=== PATIENT | male | born 1990 | race Caucasian/White ===

== ENCOUNTER 2022-07-08 04:53 | Emergency (ER) | payer BC ==
[~2022-07-08] VITALS: Ht 182.9 cm; Wt 127.0 kg
[~2022-07-08 04:53] MED LIST: Percocet 5-3251 EACH PO; Zofran8 MG PO
== END 2022-07-08 05:58 | disposition home or self-care (01) ==
LOC: ER 04:53
DX: R04.0 Epistaxis (principal)
CPT/HCPCS: A9270

== ENCOUNTER 2024-08-30 18:48 | Emergency (ER) | payer BC ==
[~2024-08-30] VITALS: Ht 182.9 cm; Wt 127.0 kg
[2024-08-30 18:52] VITALS: BP 148/99
[2024-08-30] MEDS ORDERED: Ibuprofen 400 MG Tab PO ONE (18:55)
== END 2024-08-30 20:09 | disposition home or self-care (01) ==
LOC: ER 18:48
DX: S92.912A Unspecified fracture of left toe(s), initial encounter for closed fracture (principal); Z79.899 Other long term (current) drug therapy; W22.09XA Striking against other stationary object, initial encounter
CPT/HCPCS: 73660; 99283-25; A9270